=== PATIENT | male | born 1950 | race Caucasian/White ===

== ENCOUNTER 2020-08-02 05:34 | Outpatient (RCR) | payer BC, MEDICARE, OTHER ==
[~2020-08-02] VITALS: Ht 177 cm; Wt 90.9 kg
[~2020-08-02 05:34] MED LIST: ASPI-999 PO; CETI10TA17 PO; DIPH25CA48 PO; MULT-1136 PO
== END 2020-08-02 10:15 | disposition home or self-care (01) ==
LOC: PREOP 05:34
PROVIDERS: ATTEND Surgery
DX: Z01.818 Encounter for other preprocedural examination (principal); Z12.11 Encounter for screening for malignant neoplasm of colon; K92.1 Melena; Z20.828 Contact with and (suspected) exposure to other viral communicable diseases
CPT/HCPCS: 87635

== ENCOUNTER 2020-08-04 09:07 | Day surgery (SDC) | payer BC, MEDICARE ==
[2020-08-04] VITALS (16 sets, daily range): BP systolic 111–145; BP diastolic 67–100
[~2020-08-04] VITALS: Ht 177 cm; Wt 91.0 kg
[2020-08-04] MEDS ORDERED: NS IV 500 ML 500 ML ONE (09:08)
[2020-08-04] MEDS ORDERED: NS IV 500 ML 500 ML IV PRN (09:30)
[2020-08-04] MEDS ORDERED: MIDAZOLAM 5 MG/5 ML (VERSED) VIAL IV ONE (09:30)
[2020-08-04] MEDS ORDERED: fentaNYL INJECTION 100 MCG/2 ML AMP IVP ONE (09:30)
[2020-08-04] MEDS ORDERED: LIDOCAINE JELLY 2% 6 ML SYRINGE MM PRN (09:30)
[2020-08-04] MEDS ORDERED: LIDOCAINE JELLY 2% 6 ML SYRINGE ONE (10:24)
[2020-08-04] MEDS ORDERED: MIDAZOLAM 5 MG/5 ML (VERSED) VIAL ONE ×2 (10:24→10:25)
[2020-08-04] MEDS ORDERED: fentaNYL INJECTION 100 MCG/2 ML AMP ONE ×2 (10:24→10:25)
--- NOTE | 2020-08-04 10:32 | Conscious Sedation/ASA ---
Conscious Sedation Pre-Proced Time 10:00 ASA Score 2 For ASA 3 and 4: Consider anesthesia and medical clearance. Also, for patients with a history of failed moderate sedation consider anesthesia. Airway Lungs Heart ASA score ASA 1: a normal healthy patient ASA 2: a patient with a mild systemic disease (mid diabetes, controlled hypertension, obesity ASA 3: a patient with a severe systemic disease that limits activity (angina, COPD, prior Myocardial infarction) ASA 4: a patient with an incapacitating disease that is a constant threat to life (CHF, renal failure) ASA 5: a moribund patient not expected to survive 24 hrs. (ruptured aneurysm) ASA 6: a declared brain- patient whose organs are being harvested. For emergent operations, add the letter E after the classification Mallampati Classification Grade 2 Sedation Plan Analgesia, Amnesia, Plan communicated to team members, Discussed options with patient/fam, Discussed risks with patient/fam The patient is an appropriate candidate to undergo the planned procedure, sedation, and anesthesia. The patient immediately re-assessed prior to indication. BREN CARROLL MD Aug 04, 2020 10:32
--- NOTE | 2020-08-04 10:33 | Progress Note-Pre Operative ---
Pre-Operative Progress Note H&P Reviewed The H&P was reviewed, patient examined and no changes noted. Date Seen by Provider: Aug 04, 2020 Time Seen by Provider: 10:00 Date H&P Reviewed: Aug 04, 2020 Time H&P Reviewed: 10:00 Pre-Operative Diagnosis: positive cologaurd BREN CARROLL MD Aug 04, 2020 10:33
--- NOTE | 2020-08-04 10:34 | Discharge Inst-Surgical ---
D/C Lap Instructions-CARLY Follow Up Activity as tolerated High Fiber Diet 25g or more per day Avoid Alcohol, Caffeine, Spicy [place] and Acid foods. Drink 64 fluid oz or more of fluids per day. Symptoms to Report: Fever over 101 degree F, Nausea/Vomiting If any problems/questions: Contact your physician or go to Emergency Room BREN CARROLL MD Aug 04, 2020 10:34
[2020-08-04] MEDS ORDERED: ONDANSETRON 4 MG/2 ML (SDV) Z0FRAN IVP PRN (10:45)
[2020-08-04] MEDS ORDERED: morphine INJ 10 MG/ML 1ML (SYR OR VIAL) IVP PRN ×2 (10:45)
[2020-08-04] MEDS ORDERED: ACETAMINOPHEN 325 MG TABLET PO PRN (10:45)
[2020-08-04] MEDS ORDERED: HYDROcodone/APAP 5 MG/325 MG (LORTAB) TAB PO PRN (10:45)
--- NOTE | 2020-08-04 12:43 | Progress Note-Post Operative ---
Post-Operative Progess Note Surgeon (s)/Corporate Development Associate (s) Surgeon BREN CARROLL MD Corporate Development Associate: none Pre-Operative Diagnosis positive cologaurd Post-Operative Diagnosis chronic stage 2 ext and int hemorrhoids, moderate sigmoid diverticulosis, sigmoid polpy vs. diverticular inflammation. Procedure & Operative Findings Date of Procedure 08/04/20 Procedure Performed/Findings colonoscopy with bx. Anesthesia Type cs Estimated Blood Loss Estimated blood loss (mL): minimal Specimens/Packing Specimens Removed sigmoid colon BREN CARROLL MD Aug 04, 2020 12:43
--- NOTE | 2020-08-04 14:07 | OPERATIVE REPORT ---
DATE OF SERVICE: 08/04/2020 ATTENDING PRIMARY CARE PHYSICIAN: Miryam Sen MD PREOPERATIVE DIAGNOSIS: Postitive Cologuard test screening. POSTOPERATIVE DIAGNOSES: Mild chronic stage II external and internal hemorrhoids, moderate sigmoid diverticulosis, mild inflammatory lesion of the sigmoid colon adjacent to a diverticula, which may indicate a small polyp versus isolated diverticulitis. Remainder of the colon was normal. PROCEDURE: Colonoscopy with biopsy. SURGEON: Bren Carroll MD. ANESTHESIA: Conscious sedation. ESTIMATED BLOOD LOSS: Minimal. FINDINGS: Mild chronic stage II external and internal hemorrhoids, moderate sigmoid diverticulosis, mild inflammatory lesion of the sigmoid colon adjacent to a diverticula, which may indicate a small polyp versus isolated diverticulitis. Remainder of the colon was normal. DISPOSITION: The patient tolerated the procedure well. INDICATIONS: The patient is a 69-year-old male referred over to us for a colonoscopy. He has not had a colonoscopy up to this point in his life. He did have a Cologuard test performed, which did come back positive. He states that he does have occasional episodes of hemorrhoidal flareups and bleeding. He does not report any family history of colon cancer; however, does have a personal history of prostate cancer. DESCRIPTION OF PROCEDURE: The patient was brought to the endoscopy suite, laid in the left lateral decubitus position. After adequate IV pain and sedative medications and conscious sedation anesthesia, digital rectal examination was performed. Mild chronic stage II external and internal hemorrhoids were identified, which were not actively edematous nor inflamed and no bleeding. Normal sphincter tone was felt and there were no palpable masses. Prostate gland was surgically absent. The endoscope was then intubated and anus and rectum gently insufflated. The endoscope was then advanced to the valves of [place] of the rectum with no polyps or any neoplasms identified. Through the sigmoid colon, a moderate sigmoid diverticulosis identified. There was a small red and erythematous lesion adjacent to a diverticular pocket, which may indicate an isolated area of diverticulitis versus a small polyp and this was biopsied using forceps with visualization of good hemostasis. The endoscope was then advanced to the remainder of the descending, transverse and ascending colon to the cecum. These segments were normal. No other lesions identified. The endoscope was then slowly withdrawn while taking a second look and suctioning of residual air with no additional findings. The patient tolerated the procedure well. We will recommend the necessary lifestyle and diet accommodation including a high fiber diet with at least 30 grams of fiber daily as well as significant amounts of water to promote soft stools on a daily basis. We will await the biopsy results and if this is a hyperplastic or tubular adenoma then he may wait 10 years for his next colonoscopy; however, if there is any villous component to a polyp, we will have him follow up in 3 years. Job ID: [id number] DocumentID: [id number] Dictated Date: 08/04/2020 11:05:19 Rn Lpn Lvn Date: 08/04/2020 14:07:19 Dictated By: BREN CARROLL MD [id number]
== END 2020-08-04 12:05 | disposition home or self-care (01) ==
LOC: ENDO 09:07
PROVIDERS: ATTEND Surgery
DX: Z12.11 Encounter for screening for malignant neoplasm of colon (principal); K64.1 Second degree hemorrhoids; K57.30 Diverticulosis of large intestine without perforation or abscess without bleeding; Z79.82 Long term (current) use of aspirin; Z79.899 Other long term (current) drug therapy; M19.90 Unspecified osteoarthritis, unspecified site; Z85.46 Personal history of malignant neoplasm of prostate
CPT/HCPCS: 88305

== ENCOUNTER → 2021-10-04 | Outpatient (CLI) | payer MEDICARE ==
--- NOTE | 2021-10-04 10:03 | Diagnostic Imaging Report ---
INDICATION: Postmenopausal screening COMPARISON: Baseline FINDINGS: AP Spine L1-L4: [BMD (g/cm2): 1.337] [T-Score: 0.8] [Z-Score: 0.8] [BMD Previous: NA] [BMD % Change: NA] LT Hip Neck: [BMD (g/cm2): 1.071] [T-Score: 0.0] [Z-Score: 0.9] LT Hip Total: [BMD (g/cm2):1.196] [T-Score:0.7] [Z-Score: 1.0] [BMD Previous: NA] [BMD % Change: NA] RT Hip Neck: [BMD (g/cm2):1.108] [T-Score:0.3] [Z-Score:1.1] RT Hip Total: [BMD (g/cm2):1.243] [T-score:1.0] [Z-Score:1.3] [BMD Previous:NA] [BMD % Change:NA] *Indicates significant change from prior examination based on 95% confidence level. World Health Organization criteria for BMD interpretation classify patients as Normal (T-score at or above -1.0), Osteopenic (T-score between -1.0 and -2.5) or Osteoporotic (T-score at or below -2.5). LIMITATIONS AND MODIFICATION: None. FRACTURE RISK (FRAX SCORE): The ten year probability of (%): Major Osteoporotic Fracture: [NA] Hip Fracture: [NA] IMPRESSION: 1. Normal bone mineral density. 2. Baseline examination. 3. See below National Osteoporosis Foundation guidelines on when to potentially initiate pharmacologic therapy. Based on the National Osteoporosis Foundation Guidelines, pharmacologic treatment should be initiated in any of the following, unless clinical conditions suggest otherwise: * Any patient with prior fragility fracture of the hip or vertebrae. A spine fracture indicates 5X risk for subsequent spine fracture and 2X risk for subsequent hip fracture. * Osteoporosis (T-score <-2.5). * Postmenopausal women and men age 50 and older with low bone mass/osteopenia (T-score between -1.0 and -2.5) by DXA and 10-year major osteoporotic fracture greater than 20% or a 10-year probability of hip fracture greater than 3%. These fracture risks are supplied above in the FRAX score, if applicable. * Clinician judgement and/or patient preferences may indicate treatment for people with 10-year fracture probabilities above or below these levels. Dictated by: Dictated on workstation # [id number]
== END ==
LOC: RAD 09:00
PROVIDERS: ATTEND Family Medicine
DX: Z13.820 Encounter for screening for osteoporosis (principal); E34.2 Ectopic hormone secretion, not elsewhere classified
CPT/HCPCS: 77080